=== PATIENT | female | born 1940 | race Two or more races ===

== ENCOUNTER 2023-06-23 13:53 | Emergency (ER) | payer OTHER ==
[~2023-06-23] VITALS: Ht 157.5 cm; Wt 45.4 kg
[2023-06-23] MEDS ORDERED: PLAVIX75 MG (14:20)
[2023-06-23 15:40] LABS: HEMATOCRIT 29.8 % (36.0-45.00); HEMOGLOBIN 10.1 g/dL (12.0-15.00); MEAN CELL VOLUME 94.4 fL (80.00-100.00); MEAN CORPUSCULAR HGB CONC 33.9 g/dl (32.0-36.0); PLATELET COUNT 154 K/uL (150-450); RED BLOOD COUNT 3.16 M/uL (4.00-6.00); RED CELL DISTRIBUTION WIDTH 15.9 % (11.5-14.5)
[2023-06-23 16:15] LABS: ALBUMIN 2.8 gm/dL (3.4-5.0); BILIRUBIN TOTAL 1.96 mg/dL (0.3-1.2); BILIRUBIN,CONJUGATED 1.03 mg/dL (0.0-0.2); BILIRUBIN,UNCONJUGATED 0.93 mg/dL (0.0-0.6); CALCIUM 8.3 mg/dL (8.5-10.1); CREATININE SERUM 1.02 mg/dL (0.55-1.02); GFR 51.63; POTASSIUM 3.93 mEq/L (3.5-5.1); TOTAL PROTEIN 6.4 gm/dL (6.4-8.2)
[2023-06-23 17:48] LABS: URINE APPEARANCE Cloudy; URINE BILIRRUBIN Small (NEGATIVE); URINE BLOOD Negative; URINE COLOR Dark Yellow; URINE GLUCOSE Negative (NEGATIVE); URINE LEUKOCYTE Trace; URINE NITRATE Negative
[2023-06-23 17:52] LABS: URINE BACTERIA 442.2 uL (0.0-1933); URINE EPITHELIAL CELLS 21.7 uL (0.0-38.8); URINE RBC 11.3 uL (0.0-20.8); URINE WBC 13.4 uL (0.0-23.2)
[2023-06-23 18:43] LABS: URINE PROTEIN 100 (NEGATIVE)
[2023-06-23 18:44] LABS: URINE CRYSTALS FEW /HPF
== END 2023-06-23 20:42 | disposition home or self-care (01) ==
LOC: ER 13:53
PROVIDERS: General Practice
DX: R55 Syncope and collapse (principal); R42 Dizziness and giddiness; I10 Essential (primary) hypertension; E11.9 Type 2 diabetes mellitus without complications

== ENCOUNTER 2023-06-30 10:05 | Emergency (ER) | payer OTHER ==
[~2023-06-30] VITALS: Ht 157.5 cm; Wt 45.4 kg
[~2023-06-30 10:05] MED LIST: PLAVIX75 MG
[2023-06-30] MEDS ORDERED: GRALISE600 MG PO (10:11)
[2023-06-30] MEDS ORDERED: CARVEDILOL ER40 MG PO (10:11)
[2023-06-30] MEDS ORDERED: PRESERVISION A1 EAC1 (10:11)
[2023-06-30] MEDS ORDERED: OMEPRAZOLE20 MG (10:12)
[2023-06-30] MEDS ORDERED: NITROGLYCERIN0.4 MG SL (10:12)
[2023-06-30 11:26] LABS: HEMATOCRIT 34.9 % (36.0-45.00); HEMOGLOBIN 11.8 g/dL (12.0-15.00); MEAN CELL VOLUME 92.7 fL (80.00-100.00); MEAN CORPUSCULAR HEMOGLOBIN 31.3 pg (27.00-32.0); MEAN CORPUSCULAR HGB CONC 33.7 g/dl (32.0-36.0); PLATELET COUNT 308 K/uL (150-450); RED BLOOD COUNT 3.77 M/uL (4.00-6.00); RED CELL DISTRIBUTION WIDTH 15.1 % (11.5-14.5)
[2023-06-30 11:47] LABS: ALBUMIN 3.2 gm/dL (3.4-5.0); BILIRUBIN TOTAL 1.12 mg/dL (0.3-1.2); BILIRUBIN,CONJUGATED 0.7 mg/dL (0.0-0.2); BILIRUBIN,UNCONJUGATED 0.42 mg/dL (0.0-0.6); CALCIUM 9.7 mg/dL (8.5-10.1); CREATININE SERUM 0.67 mg/dL (0.55-1.02); GFR 83.85; POTASSIUM 4.12 mEq/L (3.5-5.1)
[2023-06-30 13:03] LABS: URINE APPEARANCE Clear; URINE BILIRRUBIN Negative (NEGATIVE); URINE BLOOD Negative; URINE COLOR Yellow; URINE GLUCOSE Negative (NEGATIVE); URINE LEUKOCYTE Trace; URINE NITRATE Negative; URINE PROTEIN 30 (NEGATIVE); URINE UROBILINOGEN 0.2 E.U./dl
[2023-06-30 13:06] LABS: URINE BACTERIA 21.4 uL (0.0-1933); URINE EPITHELIAL CELLS 6.3 uL (0.0-38.8); URINE RBC 3.4 uL (0.0-20.8); URINE WBC 19.7 uL (0.0-23.2)
== END 2023-06-30 15:20 | disposition home or self-care (01) ==
LOC: ER 10:06
PROVIDERS: General Practice
DX: K29.70 Gastritis, unspecified, without bleeding (principal); I10 Essential (primary) hypertension
CPT/HCPCS: 36415; 74177; 96365; 99284; J2405; J3490; Q9965

== ENCOUNTER 2023-08-08 07:23 | Inpatient (IN) | payer OTHER ==
[~2023-08-08] VITALS: Ht 152.4 cm; Wt 40.8 kg
[~2023-08-08 07:23] MED LIST changes: +CARVEDILOL ER40 MG PO; +GRALISE600 MG PO; +NITROGLYCERIN0.4 MG SL; +OMEPRAZOLE20 MG; +PRESERVISION A1 EAC1
[2023-08-08] MEDS ORDERED: CARVEDILOL12.5 MG (07:43)
[2023-08-08] MEDS ORDERED: PLAVIX75 MG PO (07:44)
[2023-08-08] MEDS ORDERED: COZAAR25 MG PO (07:44)
[2023-08-08] MEDS ORDERED: LIPITOR40 M1 PO (07:45)
[2023-08-08] MEDS ORDERED: PRILOSEC2.5 MG PO (07:45)
[2023-08-08] MEDS ORDERED: 0.9 % SODIUM CHLORIDE 1,000 ML IV STA (08:58)
[2023-08-08 09:47] LABS: HEMATOCRIT 27.6 % (36.0-45.00); MEAN CELL VOLUME 89.2 fL (80.00-100.00); PLATELET COUNT 256 K/uL (150-450); RED CELL DISTRIBUTION WIDTH 14.2 % (11.5-14.5)
[2023-08-08 10:02] LABS: MEAN CORPUSCULAR HEMOGLOBIN 30.3 pg (27.00-32.0)
[2023-08-08 10:03] LABS: HEMOGLOBIN 9.4 g/dL (12.0-15.00)
[2023-08-08 10:13] LABS: INR 1.08; PARTIAL THROMBOPLASTIN TIME 31.4 SECONDS (22.0-34.0); PROTHROMBIN TIME 11.3 SECONDS (9.0-11.5)
[2023-08-08 10:20] LABS: ALBUMIN 2.2 gm/dL (3.4-5.0); BILIRUBIN TOTAL 6.88 mg/dL (0.3-1.2); CALCIUM 8.7 mg/dL (8.5-10.1); CREATININE SERUM 1.83 mg/dL (0.55-1.02); GFR 26.3; GLOBULINA 4.2 G/DL (2.4-3.5); POTASSIUM 4.37 mEq/L (3.5-5.1); TOTAL PROTEIN 6.4 gm/dL (6.4-8.2)
[2023-08-08] MEDS ORDERED: 0.9 % SODIUM CHLORIDE 500 ML IV STA (11:59)
[2023-08-08] MEDS ORDERED: 0.9 % SODIUM CHLORIDE 1,000 ML IV SCH (18:15)
[2023-08-08] MEDS ORDERED: ACETAMINOPHEN 500 MG GEL..CAP PO PRN (18:30)
[2023-08-08] MEDS ORDERED: ONDANSETRON HCL 4 MG in 0.9 % SODIUM CHLORIDE 50 ML IV PRN (18:30)
[2023-08-08] MEDS ORDERED: CARVEDILOL 3.125 MG TABLET PO SCH (21:00)
[2023-08-09] MEDS ORDERED: FAMOTIDINE/PF 20 MG in 0.9 % SODIUM CHLORIDE 8 ML IV PUSH SCH (09:00)
[2023-08-09] MEDS ORDERED: LOSARTAN POTASSIUM 25 MG TABLET PO SCH (09:00)
[2023-08-09] MEDS ORDERED: IRON FUM,PS/FOLIC/BCOMP,C NO.9 1 CAP CAPSULE PO SCH (09:00)
[2023-08-09] MEDS ORDERED: ENOXAPARIN SODIUM 40 MG/0.4 ML SYRINGE SUBCUTANEO SCH (09:00)
[2023-08-09] MEDS ORDERED: CLOPIDOGREL BISULFATE 75 MG TABLET PO SCH (09:00)
[2023-08-09] MEDS ORDERED: ATORVASTATIN CALCIUM 40 MG TABLET PO SCH (09:00)
[2023-08-09 21:01] LABS: URINE APPEARANCE Clear; URINE BILIRRUBIN Moderate (NEGATIVE); URINE BLOOD Negative; URINE COLOR Dark Yellow; URINE GLUCOSE Negative (NEGATIVE); URINE LEUKOCYTE Negative; URINE NITRATE Negative; URINE PROTEIN 30 (NEGATIVE)
[2023-08-09 21:04] LABS: URINE BACTERIA 32.7 uL (0.0-1933); URINE EPITHELIAL CELLS 4.7 uL (0.0-38.8); URINE RBC 9.4 uL (0.0-20.8); URINE WBC 4.1 uL (0.0-23.2)
[2023-08-10 16:19] LABS: BILIRUBIN TOTAL 7.7 mg/dL (0.3-1.2); CALCIUM 8.4 mg/dL (8.5-10.1); CREATININE SERUM 1.42 mg/dL (0.55-1.02); GFR 35.24; POTASSIUM 4.35 mEq/L (3.5-5.1)
[2023-08-11 07:14] LABS: CALCIUM 8.2 mg/dL (8.5-10.1); CREATININE SERUM 1.31 mg/dL (0.55-1.02); GFR 38.68; POTASSIUM 3.97 mEq/L (3.5-5.1)
[2023-08-11] MEDS ORDERED: ENOXAPARIN SODIUM 30 MG/0.3 ML SYRINGE SUBCUTANEO SCH (09:00)
== END 2023-08-11 16:35 | disposition home or self-care (01) | DRG 683 ==
LOC: ER 07:23 → SEC-K 18:55 → MEDI 08-09 17:50
PROVIDERS: Emergency Medicine; General Practice; Internal Medicine; ADMIT Internal Medicine; ATTEND Internal Medicine
PROC: BT43ZZZ Ultrasonography of Bilateral Kidneys (ICD-10-PCS; principal; 2023-08-08)
PROC: B020ZZZ Computerized Tomography (CT Scan) of Brain (ICD-10-PCS; 2023-08-08)
PROC: B246ZZZ Ultrasonography of Right and Left Heart (ICD-10-PCS; 2023-08-08)
DX: N17.9 Acute kidney failure, unspecified (principal); E87.1 Hypo-osmolality and hyponatremia; Z68.1 Body mass index [BMI] 19.9 or less, adult; E86.0 Dehydration; D64.89 Other specified anemias; R55 Syncope and collapse; R63.0 Anorexia; R41.0 Disorientation, unspecified; I12.9 Hypertensive chronic kidney disease with stage 1 through stage 4 chronic kidney disease, or unspecified chronic kidney disease; N18.9 Chronic kidney disease, unspecified

== ENCOUNTER 2023-08-14 07:23 | Outpatient (CLI) | payer OTHER ==
[~2023-08-14 07:23] MED LIST changes: +CARVEDILOL12.5 MG; +COZAAR25 MG PO; +LIPITOR40 M1 PO; +PLAVIX75 MG PO; +PRILOSEC2.5 MG PO
== END 2023-08-14 07:32 | disposition home or self-care (01) ==
LOC: RX STUDY 07:23
PROVIDERS: ATTEND Internal Medicine Gastroenterology
DX: K56.609 Unspecified intestinal obstruction, unspecified as to partial versus complete obstruction (principal)